=== PATIENT | female | born 1935 | race Caucasian/White ===

== ENCOUNTER → 2016-10-22 | Outpatient (REF) | payer MEDICARE | LOC: M SFHCCLAY 08:43 | PROVIDERS: ATTEND Nurse Practitioner Family | DX: E78.4 Other hyperlipidemia (principal); E55.9 Vitamin D deficiency, unspecified ==

== ENCOUNTER → 2017-03-06 | Outpatient (REF) | payer MEDICARE ==
[2017-03-06 12:50] LABS: MEAN CORPUSCULAR HEMOGLOBIN 31.8 pg (27.0-33.0); MEAN CORPUSCULAR HGB CONC 34.1 g/dl (32.0-36.5); MEAN CORPUSCULAR VOLUME 93.2 fl (80.0-96.0); RED CELL DISTRIBUTION WIDTH 12.2 % (11.5-14.5); WHITE BLOOD COUNT 6.2 K/mm3 (4.0-10.0)
[2017-03-06 14:36] LABS: ALBUMIN 3.8 GM/DL (3.2-5.2); ALBUMIN/GLOBULIN RATIO 1.23 (1.00-1.93); ALKALINE PHOSPHATASE 49 U/L (45-117); ALT/SGPT 26 U/L (12-78); ANION GAP 10 MEQ/L (8-16); AST/SGOT 21 U/L (15-37); BILIRUBIN,TOTAL 0.6 MG/DL (0.2-1.0); BLOOD UREA NITROGEN 16 MG/DL (7-18); CALCIUM LEVEL 9.2 MG/DL (8.8-10.2); CARBON DIOXIDE LEVEL 26 MEQ/L (21-32); CHLORIDE LEVEL 107 MEQ/L (98-107); CHOLESTEROL LEVEL 240 MG/DL (<200); CREATININE FOR GFR 0.85 MG/DL (0.55-1.02); GLOMERULAR FILTRATION RATE > 60.0 (>32); GLUCOSE, FASTING 118 MG/DL (83-110); MAGNESIUM LEVEL 2.2 MG/DL (1.8-2.4); SODIUM LEVEL 143 MEQ/L (136-145); TOTAL PROTEIN 6.9 GM/DL (6.4-8.2); TRIGLYCERIDES LEVEL 316 MG/DL (<150)
== END ==
LOC: M SFHCCLAY 08:30
PROVIDERS: ATTEND Nurse Practitioner Family
DX: K21.9 Gastro-esophageal reflux disease without esophagitis (principal); E78.4 Other hyperlipidemia; G47.62 Sleep related leg cramps; E55.9 Vitamin D deficiency, unspecified

== ENCOUNTER → 2017-06-05 | Outpatient (REF) | payer MEDICARE | LOC: M SFHCCLAY 08:47 | PROVIDERS: ATTEND Nurse Practitioner Family | DX: E78.4 Other hyperlipidemia (principal) ==

== ENCOUNTER → 2018-04-02 | Outpatient (REF) | payer MEDICARE ==
[2018-04-02 11:32] LABS: HEMATOCRIT 42.4 % (36.0-47.0); HEMOGLOBIN 14.2 g/dl (12.0-15.5); MEAN CORPUSCULAR HEMOGLOBIN 31.5 pg (27.0-33.0); MEAN CORPUSCULAR HGB CONC 33.5 g/dl (32.0-36.5); PLATELET COUNT, AUTOMATED 248 10^3/uL (150-450); RED BLOOD COUNT 4.51 10^6/uL (4.00-5.40); RED CELL DISTRIBUTION WIDTH 12.3 % (11.5-14.5); WHITE BLOOD COUNT 8.4 10^3/uL (4.0-10.0)
[2018-04-02 12:06] LABS: TOTAL 25(OH) VITAMIN D 44.9 NG/ML (30.0-100.0)
[2018-04-02 12:32] LABS: ALBUMIN 4.3 GM/DL (3.2-5.2); ALBUMIN/GLOBULIN RATIO 1.43 (1.00-1.93); ALKALINE PHOSPHATASE 42 U/L (45-117); ALT/SGPT 19 U/L (12-78); ANION GAP 10 MEQ/L (8-16); AST/SGOT 13 U/L (7-37); BILIRUBIN,TOTAL 0.7 MG/DL (0.2-1.0); BLOOD UREA NITROGEN 26 MG/DL (7-18); CALCIUM LEVEL 9.5 MG/DL (8.8-10.2); CARBON DIOXIDE LEVEL 27 MEQ/L (21-32); CHLORIDE LEVEL 108 MEQ/L (98-107); CHOLESTEROL LEVEL 226 MG/DL (<200); CHOLESTEROL RISK RATIO 4.431 (<5); CREATININE FOR GFR 1.05 MG/DL (0.55-1.30); GLOMERULAR FILTRATION RATE 53.4 (>32); GLUCOSE, FASTING 97 MG/DL (70-100); HDL CHOLESTEROL 51 MG/DL (>40); LDL CHOLESTEROL 150 MG/DL (<100); NON-HDL-C 175 MG/DL; POTASSIUM SERUM 4.1 MEQ/L (3.5-5.1); SODIUM LEVEL 145 MEQ/L (136-145); TOTAL PROTEIN 7.3 GM/DL (6.4-8.2); TRIGLYCERIDES LEVEL 125 MG/DL (<150)
== END ==
LOC: M SFHCCLAY 08:50
DX: K21.9 Gastro-esophageal reflux disease without esophagitis (principal); E78.49 Other hyperlipidemia; E55.9 Vitamin D deficiency, unspecified
CPT/HCPCS: 80053

== ENCOUNTER → 2018-10-02 | Outpatient (REF) | payer MEDICARE ==
[2018-10-02 19:12] LABS: BLOOD UREA NITROGEN 28 MG/DL (7-18); CHOLESTEROL LEVEL 270 MG/DL (<200); CHOLESTEROL RISK RATIO 5.744 (<5); CREATININE FOR GFR 0.94 MG/DL (0.55-1.30); GLOMERULAR FILTRATION RATE > 60.0 (>32); HDL CHOLESTEROL 47 MG/DL (>40); LDL CHOLESTEROL 183 MG/DL (<100); NON-HDL-C 223 MG/DL; TRIGLYCERIDES LEVEL 199 MG/DL (<150)
== END ==
LOC: M SFHCCLAY 09:46
PROVIDERS: ATTEND Nurse Practitioner Family
DX: R79.9 Abnormal finding of blood chemistry, unspecified (principal); E78.49 Other hyperlipidemia; E55.9 Vitamin D deficiency, unspecified

== ENCOUNTER → 2019-04-09 | Outpatient (REF) | payer MEDICARE ==
[2019-04-09 11:58] LABS: HEMOGLOBIN 14.7 g/dl (12.0-15.5); MEAN CORPUSCULAR HEMOGLOBIN 31.9 pg (27.0-33.0); MEAN CORPUSCULAR HGB CONC 33.4 g/dl (32.0-36.5); MEAN CORPUSCULAR VOLUME 95.4 fl (80.0-96.0); PLATELET COUNT, AUTOMATED 302 10^3/uL (150-450); RED BLOOD COUNT 4.61 10^6/uL (4.00-5.40); WHITE BLOOD COUNT 8.7 10^3/uL (4.0-10.0)
[2019-04-09 12:34] LABS: ALBUMIN 4.2 GM/DL (3.2-5.2); ALT/SGPT 22 U/L (12-78); BILIRUBIN,TOTAL 0.8 MG/DL (0.2-1.0); BLOOD UREA NITROGEN 20 MG/DL (7-18); CALCIUM LEVEL 9.9 MG/DL (8.8-10.2); CARBON DIOXIDE LEVEL 27 MEQ/L (21-32); CHLORIDE LEVEL 106 MEQ/L (98-107); CHOLESTEROL LEVEL 276 MG/DL (<200); CHOLESTEROL RISK RATIO 5.872 (<5); CREATININE FOR GFR 0.93 MG/DL (0.55-1.30); GLOMERULAR FILTRATION RATE > 60.0 (>32); GLUCOSE, FASTING 106 MG/DL (70-100); HDL CHOLESTEROL 47 MG/DL (>40); LDL CHOLESTEROL 173 MG/DL (<100); NON-HDL-C 229 MG/DL; POTASSIUM SERUM 4.5 MEQ/L (3.5-5.1); SODIUM LEVEL 140 MEQ/L (136-145); TOTAL PROTEIN 7.5 GM/DL (6.4-8.2); TRIGLYCERIDES LEVEL 280 MG/DL (<150)
== END ==
LOC: M SFHCCLAY 09:21
PROVIDERS: ATTEND Nurse Practitioner Family
DX: E78.1 Pure hyperglyceridemia (principal)

== ENCOUNTER → 2019-07-08 | Outpatient (REF) | payer MEDICARE ==
[2019-07-08 17:52] LABS: ALBUMIN 4.5 GM/DL (3.2-5.2); BILIRUBIN,DIRECT 0.2 MG/DL (0.0-0.2); BILIRUBIN,TOTAL 0.9 MG/DL (0.2-1.0); CHOLESTEROL RISK RATIO 3.843 (<5); TOTAL PROTEIN 7.7 GM/DL (6.4-8.2)
== END ==
LOC: M SFHCCLAY 09:58
PROVIDERS: ATTEND Nurse Practitioner Family
DX: E78.5 Hyperlipidemia, unspecified (principal)

== ENCOUNTER → 2019-10-07 | Outpatient (REF) | payer MEDICARE ==
[2019-10-07 12:02] LABS: CHOLESTEROL RISK RATIO 4.18 (<5)
== END ==
LOC: M SFHCCLAY 08:37
PROVIDERS: ATTEND Nurse Practitioner Family
DX: E78.5 Hyperlipidemia, unspecified (principal)

== ENCOUNTER → 2020-04-13 | Outpatient (REF) | payer MEDICARE ==
[2020-04-13 12:42] LABS: HEMATOCRIT 42.4 % (36.0-47.0); HEMOGLOBIN 13.9 g/dl (12.0-15.5); MEAN CORPUSCULAR HEMOGLOBIN 31.2 pg (27.0-33.0); MEAN CORPUSCULAR HGB CONC 32.8 g/dl (32.0-36.5); MEAN CORPUSCULAR VOLUME 95.1 fl (80.0-96.0); PLATELET COUNT, AUTOMATED 227 10^3/uL (150-450); RED BLOOD COUNT 4.46 10^6/uL (4.00-5.40); WHITE BLOOD COUNT 8.1 10^3/uL (4.0-10.0)
[2020-04-13 13:07] LABS: ALBUMIN 4.2 GM/DL (3.2-5.2); BILIRUBIN,TOTAL 0.9 MG/DL (0.2-1.0); CALCIUM LEVEL 9.5 MG/DL (8.8-10.2); CHOLESTEROL RISK RATIO 3.145 (<5); CREATININE FOR GFR 0.98 MG/DL (0.55-1.30); GLOMERULAR FILTRATION RATE 57.6 (>32); POTASSIUM SERUM 4.2 MEQ/L (3.5-5.1); TOTAL PROTEIN 7.1 GM/DL (6.4-8.2)
[2020-04-13 17:20] LABS: TOTAL 25(OH) VITAMIN D 53.3 NG/ML (30.0-100.0)
== END ==
LOC: M SFHCCLAY 08:16
PROVIDERS: ATTEND Nurse Practitioner Family
DX: K21.9 Gastro-esophageal reflux disease without esophagitis (principal); E78.5 Hyperlipidemia, unspecified; E55.9 Vitamin D deficiency, unspecified

== ENCOUNTER → 2021-06-19 | Outpatient (REF) | payer MEDICARE ==
[2021-06-19 11:30] LABS: HEMATOCRIT 41.7 % (36.0-47.0); HEMOGLOBIN 13.9 g/dl (12.0-15.5); MEAN CORPUSCULAR HEMOGLOBIN 31.4 pg (27.0-33.0); MEAN CORPUSCULAR HGB CONC 33.3 g/dl (32.0-36.5); MEAN CORPUSCULAR VOLUME 94.3 fl (80.0-96.0); PLATELET COUNT, AUTOMATED 292 10^3/uL (150-450); RED BLOOD COUNT 4.42 10^6/uL (4.00-5.40)
[2021-06-19 12:05] LABS: ALT/SGPT 22 U/L (12-78); BILIRUBIN,TOTAL 0.8 MG/DL (0.2-1.0); BLOOD UREA NITROGEN 19 MG/DL (7-18); CARBON DIOXIDE LEVEL 30 MEQ/L (21-32); CHLORIDE LEVEL 110 MEQ/L (98-107); CHOLESTEROL LEVEL 187 MG/DL (<200); CHOLESTEROL RISK RATIO 3.666 (<5); CREATININE FOR GFR 0.93 MG/DL (0.55-1.30); GLOMERULAR FILTRATION RATE > 60.0 (>32); GLUCOSE, FASTING 111 MG/DL (70-100); HDL CHOLESTEROL 51 MG/DL (>40); LDL CHOLESTEROL 113 MG/DL (<100); NON-HDL-C 136 MG/DL; POTASSIUM SERUM 4.5 MEQ/L (3.5-5.1); SODIUM LEVEL 143 MEQ/L (136-145); TOTAL 25(OH) VITAMIN D 43.1 NG/ML (30.0-100.0); TOTAL PROTEIN 7.1 GM/DL (6.4-8.2); TRIGLYCERIDES LEVEL 115 MG/DL (<150)
== END ==
LOC: M SFHCCLAY 07:26
PROVIDERS: ATTEND Nurse Practitioner Family
DX: K21.9 Gastro-esophageal reflux disease without esophagitis (principal); E78.5 Hyperlipidemia, unspecified; E55.9 Vitamin D deficiency, unspecified

== ENCOUNTER 2021-11-21 00:30 | Emergency (ER) | payer MEDICARE ==
[~2021-11-21] VITALS: Ht 160 cm; Wt 49.7 kg
[2021-11-21] MEDS ORDERED: NS 500 ML IV ONE (00:50)
[2021-11-21 01:31] LABS: BASO # 0.1 10^3/uL (0.0-0.2); BASO % 0.5 % (0.0-1.0); EOS # 0.1 10^3/uL (0.0-0.5); EOS % 0.7 % (0.0-3.0); HEMATOCRIT 38.2 % (36.0-47.0); LYMPH # 2.6 10^3/uL (1.5-5.0); MEAN CORPUSCULAR HEMOGLOBIN 31.8 pg (27.0-33.0); MEAN CORPUSCULAR VOLUME 93.4 fl (80.0-96.0); MONO % 11.9 % (2.0-8.0); NEUTROPHILS # 9.2 10^3/uL (1.5-8.5); NEUTROPHILS % 67.5 % (36.0-66.0); PLATELET COUNT, AUTOMATED 334 10^3/uL (150-450); RED BLOOD COUNT 4.09 10^6/uL (4.00-5.40); WHITE BLOOD COUNT 13.6 10^3/uL (4.0-10.0)
[2021-11-21 01:55] LABS: CK-MB VALUE MASS 2.8 NG/ML (<3.6); MB/CK RELATIVE INDEX 2.28 (< OR =4)
[2021-11-21 01:57] LABS: RSV AMPLIFICATION NEGATIVE (NEGATIVE)
[2021-11-21 02:09] LABS: BLOOD UREA NITROGEN 13 MG/DL (7-18); CALCIUM LEVEL 9.4 MG/DL (8.8-10.2); CARBON DIOXIDE LEVEL 25 MEQ/L (21-32); CHLORIDE LEVEL 109 MEQ/L (98-107); CREATININE FOR GFR 0.86 MG/DL (0.55-1.30); FREE T4 1.29 NG/DL (0.76-1.46); GLOMERULAR FILTRATION RATE > 60.0 (>32); GLUCOSE, FASTING 138 MG/DL (70-100); MAGNESIUM LEVEL 1.8 MG/DL (1.8-2.4); NT-PRO BNP 2703 PG/ML (<450); POTASSIUM SERUM 3.7 MEQ/L (3.5-5.1); SODIUM LEVEL 141 MEQ/L (136-145)
[2021-11-21 02:18] LABS: MONO # 1.6 10^3/uL (0.0-0.8)
[2021-11-21 02:51] LABS: CK-MB VALUE MASS 2.5 NG/ML (<3.6); MB/CK RELATIVE INDEX 2.78 (< OR =4)
[2021-11-21] MEDS ORDERED: diltiaZEM **CD** 180 MG CAP PO ONE (03:15)
[2021-11-21] MEDS ORDERED: BENZONATATE 100MG CAPSULE PO ONE (03:20)
[2021-11-21 04:29] VITALS: BP 105/68
[2021-11-21] MEDS ORDERED: DILT180C78 PO (06:40)
[2021-11-21] MEDS ORDERED: BENZ200C70 PO (06:48)
[2021-11-21 07:30] VITALS: BP 104/52
== END 2021-11-21 07:45 | disposition home or self-care (01) ==
LOC: M ED 00:30
DX: I48.91 Unspecified atrial fibrillation (principal); E78.5 Hyperlipidemia, unspecified; I51.7 Cardiomegaly

== ENCOUNTER 2021-11-25 09:14 | Emergency (ER) | payer MEDICARE ==
[~2021-11-25] VITALS: Ht 160 cm; Wt 50.0 kg
[~2021-11-25 09:14] MED LIST: BENZ200C70 PO; DILT180C78 PO
[2021-11-25] MEDS ORDERED: APIXABAN 2.5 MG TAB (ELIQUIS) PO ONE (10:00)
[2021-11-25 10:18] LABS: BASO # 0.1 10^3/uL (0.0-0.2); BASO % 0.7 % (0.0-1.0); EOS # 0.1 10^3/uL (0.0-0.5); EOS % 0.7 % (0.0-3.0); HEMATOCRIT 43.2 % (36.0-47.0); HEMOGLOBIN 14.4 g/dl (12.0-15.5); LYMPH # 2.2 10^3/uL (1.5-5.0); LYMPH % 21.5 % (24.0-44.0); MEAN CORPUSCULAR HEMOGLOBIN 31.4 pg (27.0-33.0); MEAN CORPUSCULAR HGB CONC 33.3 g/dl (32.0-36.5); MEAN CORPUSCULAR VOLUME 94.3 fl (80.0-96.0); MONO % 9.9 % (2.0-8.0); NEUTROPHILS # 6.7 10^3/uL (1.5-8.5); NEUTROPHILS % 66.5 % (36.0-66.0); PLATELET COUNT, AUTOMATED 467 10^3/uL (150-450); RED BLOOD COUNT 4.58 10^6/uL (4.00-5.40)
[2021-11-25 10:59] LABS: BLOOD UREA NITROGEN 17 MG/DL (7-18); CALCIUM LEVEL 10.5 MG/DL (8.8-10.2); CARBON DIOXIDE LEVEL 28 MEQ/L (21-32); CHLORIDE LEVEL 107 MEQ/L (98-107); CREATININE FOR GFR 0.94 MG/DL (0.55-1.30); FREE T4 1.12 NG/DL (0.76-1.46); GLOMERULAR FILTRATION RATE > 60.0 (>32); GLUCOSE, FASTING 127 MG/DL (70-100); SODIUM LEVEL 145 MEQ/L (136-145)
[2021-11-25 11:07] LABS: CK-MB VALUE MASS 2.9 NG/ML (<3.6); MB/CK RELATIVE INDEX 3.97 (< OR =4)
[2021-11-25] MEDS ORDERED: HEPARIN DRIP 25,000 UNITS in IV 1 EA IV SCH (11:25)
[2021-11-25] MEDS ORDERED: ASPIRIN 81 MG CHEW TABLET PO ONE (11:25)
[2021-11-25] MEDS ORDERED: HEPARIN SOD (PORCINE) 5000UNITS/ML 1ML VIAL/SYRINGE IV ONE (11:25)
[2021-11-25 11:51] LABS: CK-MB VALUE MASS 2.9 NG/ML (<3.6); MB/CK RELATIVE INDEX 4.46 (< OR =4)
[2021-11-25 11:53] LABS: RSV AMPLIFICATION NEGATIVE (NEGATIVE)
[2021-11-25 12:01] LABS: INR 1.14
[2021-11-25 12:02] LABS: PARTIAL THROMBOPLASTIN TIME 34.7 SECONDS (25.9-37.0)
[2021-11-25 13:15] VITALS: BP 112/66
== END 2021-11-25 13:26 | disposition short-term general hospital (02) ==
LOC: M ED 09:14
DX: I21.4 Non-ST elevation (NSTEMI) myocardial infarction (principal); I48.91 Unspecified atrial fibrillation
CPT/HCPCS: 71046; 80048; 82550; 82553; 84439; 84443; 84484; 85025; 85610; 85730; 87631; 93005; 93041; 94760; 96374; 99285; J1644

== ENCOUNTER 2021-12-10 13:42 | Emergency (ER) | payer MEDICARE ==
[~2021-12-10] VITALS: Ht 162.6 cm; Wt 47.3 kg
[2021-12-10 14:37] LABS: BASO % 0.5 % (0.0-1.0); EOS # 0.1 10^3/uL (0.0-0.5); HEMATOCRIT 41.4 % (36.0-47.0); HEMOGLOBIN 14.3 g/dl (12.0-15.5); LYMPH # 2.4 10^3/uL (1.5-5.0); LYMPH % 30.3 % (24.0-44.0); MEAN CORPUSCULAR HEMOGLOBIN 31.6 pg (27.0-33.0); MEAN CORPUSCULAR HGB CONC 34.5 g/dl (32.0-36.5); MEAN CORPUSCULAR VOLUME 91.6 fl (80.0-96.0); MONO # 0.7 10^3/uL (0.0-0.8); MONO % 9.3 % (2.0-8.0); NEUTROPHILS # 4.7 10^3/uL (1.5-8.5); NEUTROPHILS % 58.6 % (36.0-66.0); PLATELET COUNT, AUTOMATED 355 10^3/uL (150-450); RED BLOOD COUNT 4.52 10^6/uL (4.00-5.40)
[2021-12-10 14:51] LABS: INR 1.08; PROTHROMBIN TIME 14.4 SECONDS (12.7-14.5)
[2021-12-10 14:52] LABS: PARTIAL THROMBOPLASTIN TIME 31.6 SECONDS (25.9-37.0)
[2021-12-10 14:57] LABS: BLOOD UREA NITROGEN 17 MG/DL (7-18); CALCIUM LEVEL 9.6 MG/DL (8.8-10.2); CARBON DIOXIDE LEVEL 26 MEQ/L (21-32); CHLORIDE LEVEL 109 MEQ/L (98-107); GLOMERULAR FILTRATION RATE > 60.0 (>32); GLUCOSE, FASTING 115 MG/DL (70-100); POTASSIUM SERUM 3.6 MEQ/L (3.5-5.1); SODIUM LEVEL 142 MEQ/L (136-145)
[2021-12-10 15:03] LABS: CK-MB VALUE MASS 3.1 NG/ML (<3.6); MB/CK RELATIVE INDEX 7.75 (< OR =4)
[2021-12-10 15:16] VITALS: BP 129/69
== END 2021-12-10 16:40 | disposition home or self-care (01) ==
LOC: EDBD 13:42 → M ED 13:42
DX: I48.0 Paroxysmal atrial fibrillation (principal); E78.5 Hyperlipidemia, unspecified; K21.9 Gastro-esophageal reflux disease without esophagitis; Z79.899 Other long term (current) drug therapy

== ENCOUNTER → 2021-12-14 | Outpatient (REF) | payer MEDICARE ==
[2021-12-14 16:33] LABS: HEMATOCRIT 40.4 % (36.0-47.0); HEMOGLOBIN 13.5 g/dl (12.0-15.5); MEAN CORPUSCULAR HEMOGLOBIN 31.1 pg (27.0-33.0); MEAN CORPUSCULAR HGB CONC 33.4 g/dl (32.0-36.5); MEAN CORPUSCULAR VOLUME 93.1 fl (80.0-96.0); PLATELET COUNT, AUTOMATED 265 10^3/uL (150-450); RED BLOOD COUNT 4.34 10^6/uL (4.00-5.40); WHITE BLOOD COUNT 10.4 10^3/uL (4.0-10.0)
== END ==
LOC: M SFHCCLAY 11:34
PROVIDERS: ATTEND Nurse Practitioner Family
DX: I48.91 Unspecified atrial fibrillation (principal)

== ENCOUNTER → 2021-12-17 | Outpatient (REF) | payer MEDICARE | LOC: M SFHCCLAY 15:37 | PROVIDERS: ATTEND Nurse Practitioner Family | DX: I48.91 Unspecified atrial fibrillation (principal) ==

== ENCOUNTER 2021-12-29 23:57 | Emergency (ER) | payer MEDICARE ==
[~2021-12-29] VITALS: Ht 160 cm; Wt 53.5 kg
[2021-12-30] MEDS ORDERED: NS 500 ML IV ONE (00:15)
[2021-12-30 00:48] LABS: BASO # 0.1 10^3/uL (0.0-0.2); BASO % 0.4 % (0.0-1.0); EOS # 0.1 10^3/uL (0.0-0.5); EOS % 0.3 % (0.0-3.0); HEMATOCRIT 42.2 % (36.0-47.0); HEMOGLOBIN 14.3 g/dl (12.0-15.5); LYMPH # 1.3 10^3/uL (1.5-5.0); LYMPH % 6.7 % (24.0-44.0); MEAN CORPUSCULAR HEMOGLOBIN 31.4 pg (27.0-33.0); MEAN CORPUSCULAR HGB CONC 33.9 g/dl (32.0-36.5); MEAN CORPUSCULAR VOLUME 92.5 fl (80.0-96.0); MONO % 9.2 % (2.0-8.0); NEUTROPHILS # 16.6 10^3/uL (1.5-8.5); NEUTROPHILS % 82.9 % (36.0-66.0); PLATELET COUNT, AUTOMATED 362 10^3/uL (150-450); RED BLOOD COUNT 4.56 10^6/uL (4.00-5.40)
[2021-12-30 00:54] LABS: MONO # 1.8 10^3/uL (0.0-0.8)
[2021-12-30 01:42] LABS: CREATININE FOR GFR 1.16 MG/DL (0.55-1.30); GLOMERULAR FILTRATION RATE 47.2 (>32); POTASSIUM SERUM 4.2 MEQ/L (3.5-5.1)
[2021-12-30 01:45] LABS: CK-MB VALUE MASS 2.7 NG/ML (<3.6); MB/CK RELATIVE INDEX 1.57 (< OR =4)
[2021-12-30] MEDS ORDERED: diltiaZEM **CD** 180 MG CAP PO ONE (02:00)
[2021-12-30 02:13] LABS: CK-MB VALUE MASS 2.3 NG/ML (<3.6); MB/CK RELATIVE INDEX 2.99 (< OR =4)
[2021-12-30] MEDS ORDERED: ONDANSETRON 4MG 2ML VIAL IV ONE (04:30)
[2021-12-30 07:31] VITALS: BP 113/51
== END 2021-12-30 08:15 | disposition home or self-care (01) ==
LOC: M ED 23:57
DX: I48.91 Unspecified atrial fibrillation (principal); R91.8 Other nonspecific abnormal finding of lung field; I48.92 Unspecified atrial flutter; I44.30 Unspecified atrioventricular block; K21.9 Gastro-esophageal reflux disease without esophagitis; Z98.61 Coronary angioplasty status; Z79.899 Other long term (current) drug therapy
CPT/HCPCS: 71045; 80048; 82550; 82553; 83880; 84484; 85025; 93005; 93041; 94760; 96361; 96374; 96375; 99285; J2405

== ENCOUNTER → 2022-02-20 | Outpatient (REF) | payer MEDICARE ==
[2022-02-20 16:59] LABS: HEMOGLOBIN 13.9 g/dl (12.0-15.5); MEAN CORPUSCULAR HEMOGLOBIN 31.4 pg (27.0-33.0); MEAN CORPUSCULAR HGB CONC 33.9 g/dl (32.0-36.5); MEAN CORPUSCULAR VOLUME 92.8 fl (80.0-96.0); PLATELET COUNT, AUTOMATED 308 10^3/uL (150-450); RED BLOOD COUNT 4.42 10^6/uL (4.00-5.40); WHITE BLOOD COUNT 9.3 10^3/uL (4.0-10.0)
[2022-02-20 17:47] LABS: ALBUMIN 4.3 GM/DL (3.2-5.2); BILIRUBIN,TOTAL 0.5 MG/DL (0.2-1.0); CALCIUM LEVEL 9.9 MG/DL (8.8-10.2); CHOLESTEROL RISK RATIO 2.952 (<5); CREATININE FOR GFR 0.98 MG/DL (0.55-1.30); FREE T4 0.97 NG/DL (0.76-1.46); GLOMERULAR FILTRATION RATE 57.3 (>32); POTASSIUM SERUM 4.2 MEQ/L (3.5-5.1); THYROID STIMULATING HORMONE 2.74 uIU/ML (0.358-3.740); TOTAL PROTEIN 7.6 GM/DL (6.4-8.2)
== END ==
LOC: M SFHCCLAY 13:54
PROVIDERS: ATTEND Nurse Practitioner Family
DX: E78.5 Hyperlipidemia, unspecified (principal); I48.91 Unspecified atrial fibrillation

== ENCOUNTER 2022-05-13 04:06 | Emergency (ER) | payer MEDICARE ==
[~2022-05-13] VITALS: Ht 160 cm; Wt 45.5 kg
[2022-05-13] MEDS ORDERED: PANT40TA29 PO (04:23)
[2022-05-13] MEDS ORDERED: SIMV10TA21 PO (04:23)
[2022-05-13] MEDS ORDERED: FLEC1TAB PO (04:23)
[2022-05-13] MEDS ORDERED: ELIQ2.5T PO (04:23)
[2022-05-13] MEDS ORDERED: FENO145T7 PO (04:23)
[2022-05-13] MEDS ORDERED: CALC500C16 PO (04:24)
[2022-05-13] MEDS ORDERED: OMEG1CAP17 PO (04:24)
[2022-05-13 05:37] LABS: BASO # 0.1 10^3/uL (0.0-0.2); BASO % 0.7 % (0.0-1.0); EOS # 0.1 10^3/uL (0.0-0.5); EOS % 1.3 % (0.0-3.0); HEMATOCRIT 37.3 % (36.0-47.0); HEMOGLOBIN 12.7 g/dl (12.0-15.5); LYMPH # 2.3 10^3/uL (1.5-5.0); LYMPH % 22.5 % (24.0-44.0); MEAN CORPUSCULAR HEMOGLOBIN 31.4 pg (27.0-33.0); MEAN CORPUSCULAR VOLUME 92.1 fl (80.0-96.0); MONO # 0.9 10^3/uL (0.0-0.8); MONO % 8.7 % (2.0-8.0); NEUTROPHILS # 6.7 10^3/uL (1.5-8.5); NEUTROPHILS % 66.4 % (36.0-66.0); PLATELET COUNT, AUTOMATED 410 10^3/uL (150-450); RED BLOOD COUNT 4.05 10^6/uL (4.00-5.40); WHITE BLOOD COUNT 10.1 10^3/uL (4.0-10.0)
[2022-05-13 05:52] LABS: INR 1.07; PROTHROMBIN TIME 14.1 SECONDS (12.5-14.5)
[2022-05-13 06:11] LABS: ALBUMIN 3.7 GM/DL (3.2-5.2); ALT/SGPT 19 U/L (12-78); BILIRUBIN,DIRECT 0.2 MG/DL (0.0-0.2); BILIRUBIN,TOTAL 0.4 MG/DL (0.2-1.0); BLOOD UREA NITROGEN 19 MG/DL (7-18); CALCIUM LEVEL 9.3 MG/DL (8.8-10.2); CARBON DIOXIDE LEVEL 24 MEQ/L (21-32); CHLORIDE LEVEL 112 MEQ/L (98-107); CREATININE FOR GFR 0.94 MG/DL (0.55-1.30); GLOMERULAR FILTRATION RATE > 60.0 (>32); GLUCOSE, FASTING 131 MG/DL (70-100); NT-PRO BNP 1562 PG/ML (<450); POTASSIUM SERUM 3.5 MEQ/L (3.5-5.1); SODIUM LEVEL 141 MEQ/L (136-145); TOTAL PROTEIN 7.6 GM/DL (6.4-8.2)
[2022-05-13 06:17] LABS: CK-MB VALUE MASS 2.1 NG/ML (<3.6); MB/CK RELATIVE INDEX 3.96 (< OR =4)
[2022-05-13] MEDS ORDERED: ASPIRIN 325 MG TAB PO ONE (06:20)
[2022-05-13] MEDS ORDERED: ISOVUE-370 76% 100ML VIAL As Ordered ONE (06:59)
[2022-05-13 07:38] LABS: CK-MB VALUE MASS 2.3 NG/ML (<3.6); MB/CK RELATIVE INDEX 4.34 (< OR =4)
[2022-05-13 08:50] LABS: CK-MB VALUE MASS 2.2 NG/ML (<3.6); MB/CK RELATIVE INDEX 4.58 (< OR =4)
[2022-05-13] MEDS ORDERED: PANTOPRAZOLE 40MG TAB (PROTONIX) PO ONE (09:25)
[2022-05-13] MEDS ORDERED: FLECAINIDE 50MG TABLET PO ONE (09:25)
[2022-05-13] MEDS ORDERED: APIXABAN 2.5 MG TAB (ELIQUIS) PO ONE (09:25)
[2022-05-13] MEDS ORDERED: FENO160T10 PO (09:54)
[2022-05-13] MEDS ORDERED: CALC600T86 PO (09:54)
[2022-05-13] MEDS ORDERED: ERGO500029 PO (09:54)
[2022-05-13] MEDS ORDERED: DILT300C21 PO (09:54)
[2022-05-13] MEDS ORDERED: HOME MED LIST COMPLETE! XX SCH (09:55)
[2022-05-13 11:00] VITALS: BP 146/63
== END 2022-05-13 11:15 | disposition home or self-care (01) ==
LOC: M ED 04:06
DX: I48.0 Paroxysmal atrial fibrillation (principal); Z98.61 Coronary angioplasty status; I10 Essential (primary) hypertension; K21.9 Gastro-esophageal reflux disease without esophagitis; E55.9 Vitamin D deficiency, unspecified; E78.5 Hyperlipidemia, unspecified; Z79.01 Long term (current) use of anticoagulants; Z79.899 Other long term (current) drug therapy; I51.7 Cardiomegaly; J98.4 Other disorders of lung
CPT/HCPCS: 71046; 71275; 80048; 80076; 82550; 82553; 83880; 84484; 85025; 85610; 85730; 87486; 87581; 87633; 87798; 93005; 93041; 94760; 99285; Q9967

== ENCOUNTER 2022-06-01 17:55 | Inpatient (IN) | payer MEDICARE ==
[~2022-06-01] VITALS: Ht 149.9 cm; Wt 49.0 kg
[~2022-06-01 17:55] MED LIST changes: +CALC500C16 PO; +CALC600T86 PO; +DILT300C21 PO; +ELIQ2.5T PO; +ERGO500029 PO; +FENO145T7 PO; +FENO160T10 PO; +FLEC1TAB PO; +OMEG1CAP17 PO; +PANT40TA29 PO; +SIMV10TA21 PO
[2022-06-01 19:06] LABS: BASO # 0.1 10^3/uL (0.0-0.2); BASO % 0.4 % (0.0-1.0); EOS # 0.2 10^3/uL (0.0-0.5); EOS % 0.8 % (0.0-3.0); HEMATOCRIT 39.2 % (36.0-47.0); HEMOGLOBIN 12.5 g/dl (12.0-15.5); LYMPH # 2.5 10^3/uL (1.5-5.0); LYMPH % 12.3 % (24.0-44.0); MEAN CORPUSCULAR HEMOGLOBIN 30.9 pg (27.0-33.0); MEAN CORPUSCULAR HGB CONC 31.9 g/dl (32.0-36.5); MEAN CORPUSCULAR VOLUME 96.8 fl (80.0-96.0); MONO # 1.3 10^3/uL (0.0-0.8); MONO % 6.2 % (2.0-8.0); NEUTROPHILS # 16.4 10^3/uL (1.5-8.5); NEUTROPHILS % 79.5 % (36.0-66.0); PLATELET COUNT, AUTOMATED 348 10^3/uL (150-450); RED BLOOD COUNT 4.05 10^6/uL (4.00-5.40); WHITE BLOOD COUNT 20.6 10^3/uL (4.0-10.0)
[2022-06-01 19:14] LABS: RSV AMPLIFICATION NEGATIVE (NEGATIVE)
[2022-06-01] MEDS ORDERED: GLUCAGON INJ 1MG VIAL IV STA ×2 (19:20→19:40)
[2022-06-01] MEDS ORDERED: CALCIUM CHLORIDE 10% 1 GM in D5W 100 ML IV ONE (19:20)
[2022-06-01 19:21] LABS: INR 1.22; PARTIAL THROMBOPLASTIN TIME 27.5 SECONDS (24.8-34.2); PROTHROMBIN TIME 15.6 SECONDS (12.5-14.5)
[2022-06-01 19:31] LABS: BLOOD UREA NITROGEN 25 MG/DL (9-23); CALCIUM LEVEL 9.2 MG/DL (8.3-10.6); CARBON DIOXIDE LEVEL 25 MMOL/L (20-31); CHLORIDE LEVEL 106 MMOL/L (98-107); CK-MB VALUE MASS < 1.0 NG/ML (<3.6); CPK CREATINE PHOSPHOKINASE 44 U/L (34-145); CREATININE FOR GFR 1.37 MG/DL (0.55-1.30); GLOMERULAR FILTRATION RATE 38.9 (>32); GLUCOSE, FASTING 220 MG/DL (74-106); MB/CK RELATIVE INDEX 2.27 (< OR =4); POTASSIUM SERUM 4.8 MMOL/L (3.5-5.1); SODIUM LEVEL 141 MMOL/L (136-145)
[2022-06-01 19:34] LABS: FREE T4 1.16 NG/DL (0.89-1.76)
[2022-06-01] MEDS ORDERED: NS 500 ML IV ONE (19:40)
[2022-06-01] MEDS ORDERED: ONDANSETRON 4MG 2ML VIAL As Ordered ONE (19:58)
[2022-06-01] MEDS ORDERED: ONDANSETRON 4MG 2ML VIAL IV ONE (20:00)
[2022-06-01 21:07] LABS: HEMATOCRIT 35.3 % (36.0-47.0); HEMOGLOBIN 11.6 g/dl (12.0-15.5); MEAN CORPUSCULAR HEMOGLOBIN 31.4 pg (27.0-33.0); MEAN CORPUSCULAR HGB CONC 32.9 g/dl (32.0-36.5); MEAN CORPUSCULAR VOLUME 95.7 fl (80.0-96.0); PLATELET COUNT, AUTOMATED 318 10^3/uL (150-450); RED BLOOD COUNT 3.69 10^6/uL (4.00-5.40)
[2022-06-01 21:39] LABS: CK-MB VALUE MASS 1.3 NG/ML (<3.6)
[2022-06-01 21:47] LABS: MB/CK RELATIVE INDEX 2.95 (< OR =4)
[2022-06-01] MEDS ORDERED: METO1TAB87 PO (23:25)
[2022-06-01] MEDS ORDERED: HOME MED LIST COMPLETE! XX SCH (23:25)
[2022-06-02] VITALS (10 sets, daily range): BP systolic 94–125; BP diastolic 52–63
[2022-06-02] MEDS ORDERED: DEXTROSE 50% 50 ML SYRINGE IV PRN (00:55)
[2022-06-02] MEDS ORDERED: GLUCAGON INJ 1MG VIAL SC PRN (00:55)
[2022-06-02] MEDS ORDERED: GLUCOSE 4GM CHEW TABLET PO PRN (00:55)
[2022-06-02] MEDS ORDERED: FUROSEMIDE 100MG/10ML VIAL (J1940) IV ONE (01:00)
[2022-06-02 05:23] LABS: MAGNESIUM LEVEL 1.7 MG/DL (1.8-2.4)
[2022-06-02 05:29] LABS: CALCIUM LEVEL 10.4 MG/DL (8.3-10.6); CREATININE FOR GFR 1.52 MG/DL (0.55-1.30); GLOMERULAR FILTRATION RATE 34.5 (>32); POTASSIUM SERUM 3.8 MMOL/L (3.5-5.1)
[2022-06-02] MEDS ORDERED: MAG SULF 1GM/100ML (MAG RUN) 1 GM in IV 1 EA IV ONE (06:00)
[2022-06-02] MEDS: INSULIN LISPRO (NovoLOG) PER UNIT SC SCH ×4 (07:30→20:53)
[2022-06-02] MEDS ORDERED: FUROSEMIDE 40MG/4ML VIAL (J1940) IV SCH (09:00)
[2022-06-02] MEDS ORDERED: APIXABAN 2.5 MG TAB (ELIQUIS) PO SCH (09:00)
[2022-06-02] MEDS: FUROSEMIDE 20 MG TAB PO SCH ×2 (10:28→17:16)
[2022-06-02] MEDS: PANTOPRAZOLE 40MG TAB (PROTONIX) PO SCH (10:28)
[2022-06-02] MEDS: FLECAINIDE 50MG TABLET PO SCH ×2 (10:28→20:52)
[2022-06-02 14:01] LABS: BASO % 0.3 % (0.0-1.0); EOS # 0.1 10^3/uL (0.0-0.5); EOS % 0.6 % (0.0-3.0); HEMATOCRIT 33.5 % (36.0-47.0); HEMOGLOBIN 11.4 g/dl (12.0-15.5); LYMPH # 2.5 10^3/uL (1.5-5.0); LYMPH % 20.1 % (24.0-44.0); MEAN CORPUSCULAR HEMOGLOBIN 31.3 pg (27.0-33.0); MONO # 1.2 10^3/uL (0.0-0.8); MONO % 9.3 % (2.0-8.0); NEUTROPHILS # 8.7 10^3/uL (1.5-8.5); NEUTROPHILS % 69.3 % (36.0-66.0); PLATELET COUNT, AUTOMATED 311 10^3/uL (150-450); RED BLOOD COUNT 3.64 10^6/uL (4.00-5.40); WHITE BLOOD COUNT 12.6 10^3/uL (4.0-10.0)
[2022-06-02] MEDS: SIMVASTATIN 10 MG TAB PO SCH (20:52)
[2022-06-02] MEDS: FENOFIBRATE 145MG TABLET (TRICOR) PO SCH (20:53)
[2022-06-03 04:41] VITALS: BP 116/59
[2022-06-03 06:07] LABS: HEMATOCRIT 36.4 % (36.0-47.0); HEMOGLOBIN 12.1 g/dl (12.0-15.5); MEAN CORPUSCULAR HEMOGLOBIN 31.3 pg (27.0-33.0); MEAN CORPUSCULAR HGB CONC 33.2 g/dl (32.0-36.5); MEAN CORPUSCULAR VOLUME 94.3 fl (80.0-96.0); PLATELET COUNT, AUTOMATED 319 10^3/uL (150-450); RED BLOOD COUNT 3.86 10^6/uL (4.00-5.40); WHITE BLOOD COUNT 13.1 10^3/uL (4.0-10.0)
[2022-06-03 06:24] LABS: MAGNESIUM LEVEL 1.8 MG/DL (1.8-2.4)
[2022-06-03 06:27] LABS: CALCIUM LEVEL 9.8 MG/DL (8.3-10.6); CREATININE FOR GFR 1.26 MG/DL (0.55-1.30); GLOMERULAR FILTRATION RATE 42.9 (>32)
[2022-06-03] MEDS: INSULIN LISPRO (NovoLOG) PER UNIT SC SCH ×4 (07:30→21:00)
[2022-06-03 07:44] VITALS: BP 122/56
[2022-06-03] MEDS: FUROSEMIDE 20 MG TAB PO SCH ×2 (09:12→17:44)
[2022-06-03] MEDS: PANTOPRAZOLE 40MG TAB (PROTONIX) PO SCH (09:13)
[2022-06-03] MEDS: FLECAINIDE 50MG TABLET PO SCH ×2 (09:13→22:18)
[2022-06-03 12:00] VITALS: BP 101/49
[2022-06-03] MEDS ORDERED: LIDOCAINE 1% MDV 20ML VIAL As Ordered ONE (13:11)
[2022-06-03] MEDS ORDERED: SODIUM CHLORIDE 0.9% INJ 10 ML SYR IV PRN (15:30)
[2022-06-03 16:00] VITALS: BP 108/58
[2022-06-03] MEDS: SODIUM CHLORIDE 0.9% INJ 10 ML SYR IV SCH (17:46)
[2022-06-03 19:44] VITALS: BP 104/53
[2022-06-03] MEDS: FENOFIBRATE 145MG TABLET (TRICOR) PO SCH (22:17)
[2022-06-03] MEDS: SIMVASTATIN 10 MG TAB PO SCH (22:18)
[2022-06-03 23:59] VITALS: BP 107/53
[2022-06-04] VITALS (8 sets, daily range): BP systolic 111–148; BP diastolic 55–67
[2022-06-04 05:34] LABS: HEMATOCRIT 38.9 % (36.0-47.0); MEAN CORPUSCULAR HEMOGLOBIN 31.6 pg (27.0-33.0); MEAN CORPUSCULAR HGB CONC 33.4 g/dl (32.0-36.5); MEAN CORPUSCULAR VOLUME 94.6 fl (80.0-96.0); PLATELET COUNT, AUTOMATED 285 10^3/uL (150-450); RED BLOOD COUNT 4.11 10^6/uL (4.00-5.40); WHITE BLOOD COUNT 9.3 10^3/uL (4.0-10.0)
[2022-06-04 05:59] LABS: CALCIUM LEVEL 9.7 MG/DL (8.3-10.6); CREATININE FOR GFR 1.01 MG/DL (0.55-1.30); GLOMERULAR FILTRATION RATE 55.3 (>32); POTASSIUM SERUM 4.1 MMOL/L (3.5-5.1)
[2022-06-04] MEDS ORDERED: NS 1,000 ML IV SCH (06:00)
[2022-06-04] MEDS: SODIUM CHLORIDE 0.9% INJ 10 ML SYR IV SCH (06:06)
[2022-06-04] MEDS: INSULIN LISPRO (NovoLOG) PER UNIT SC SCH ×3 (07:30→20:40)
[2022-06-04] MEDS: FUROSEMIDE 20 MG TAB PO SCH (08:48)
[2022-06-04] MEDS: FLECAINIDE 50MG TABLET PO SCH ×2 (08:48→21:07)
[2022-06-04] MEDS: PANTOPRAZOLE 40MG TAB (PROTONIX) PO SCH (08:48)
[2022-06-04] MEDS ORDERED: ceFAZolin SOD 2 GM in IV 1 EA IV ONE (13:30)
[2022-06-04] MEDS ORDERED: LIDOCAINE 1% SDV 30ML VIAL As Ordered ONE (13:45)
[2022-06-04] MEDS ORDERED: MUPIROCIN 2% OINT 22 GM TUBE As Ordered ONE (13:45)
[2022-06-04] MEDS ORDERED: LIDOCAINE 2% 100MG/5ML SDV (FOR ANES.) As Ordered ONE (16:21)
[2022-06-04] MEDS ORDERED: fentaNYL 100 MCG/2 ML INJECTION As Ordered ONE (16:21)
[2022-06-04] MEDS ORDERED: propofoL 500 MG/50 ML VIAL As Ordered ONE (16:21)
[2022-06-04] MEDS ORDERED: MIDAZOLAM INJ 2MG/2ML VIAL (J2250 PER 1MG) As Ordered ONE (16:21)
[2022-06-04] MEDS ORDERED: ISOVUE-300 61% 50ML VIAL As Ordered ONE (17:42)
[2022-06-04] MEDS ORDERED: ACETAMINOPHEN TAB 650MG DOSE (2X325MG) PO PRN (20:45)
[2022-06-04] MEDS: SIMVASTATIN 10 MG TAB PO SCH (21:07)
[2022-06-05] VITALS (7 sets, daily range): BP systolic 98–124; BP diastolic 53–74
[2022-06-05] MEDS: SODIUM CHLORIDE 0.9% INJ 10 ML SYR IV SCH (05:18)
[2022-06-05 05:20] LABS: HEMATOCRIT 38.2 % (36.0-47.0); MEAN CORPUSCULAR HEMOGLOBIN 31.7 pg (27.0-33.0); MEAN CORPUSCULAR VOLUME 93.2 fl (80.0-96.0); PLATELET COUNT, AUTOMATED 282 10^3/uL (150-450); WHITE BLOOD COUNT 10.4 10^3/uL (4.0-10.0)
[2022-06-05 05:55] LABS: BLOOD UREA NITROGEN 22 MG/DL (9-23); CALCIUM LEVEL 9.3 MG/DL (8.3-10.6); CARBON DIOXIDE LEVEL 29 MMOL/L (20-31); CHLORIDE LEVEL 101 MMOL/L (98-107); CREATININE FOR GFR 0.82 MG/DL (0.55-1.30); GLOMERULAR FILTRATION RATE > 60.0 (>32); GLUCOSE, FASTING 118 MG/DL (74-106); POTASSIUM SERUM 3.8 MMOL/L (3.5-5.1); SODIUM LEVEL 140 MMOL/L (136-145)
[2022-06-05] MEDS: INSULIN LISPRO (NovoLOG) PER UNIT SC SCH ×2 (07:30→12:00)
[2022-06-05] MEDS ORDERED: ASCORBIC ACID 250 MG TAB PO SCH (09:00)
[2022-06-05] MEDS ORDERED: METOPROLOL SUCC (TopROL XL) 50MG **XL** TAB PO SCH (09:00)
[2022-06-05] MEDS ORDERED: ASCO250T20 PO (09:47)
[2022-06-05] MEDS ORDERED: METO1TAB7 PO (09:47)
[2022-06-05] MEDS: FLECAINIDE 50MG TABLET PO SCH (10:08)
[2022-06-05] MEDS: PANTOPRAZOLE 40MG TAB (PROTONIX) PO SCH (10:08)
[2022-06-05] MEDS ORDERED: APIXABAN 2.5 MG TAB (ELIQUIS) PO SCH (21:00)
== END 2022-06-05 13:52 | disposition home health service (06) | DRG 242 ==
LOC: EDBD 17:55 → M ED 17:55 → M ED INP 06-02 00:53 → ENRESERV 06-02 01:26 → M ICU 06-02 01:41 → M PCU 06-02 15:58
PROVIDERS: ADMIT Internal Medicine; ATTEND Student in an Organized Health Care Education/Training Program
PROC: B246ZZZ Ultrasonography of Right and Left Heart (ICD-10-PCS; 2022-06-02)
PROC: 02HV33Z Insertion of Infusion Device into Superior Vena Cava, Percutaneous Approach (ICD-10-PCS; 2022-06-03)
PROC: 02H63MZ Insertion of Cardiac Lead into Right Atrium, Percutaneous Approach (ICD-10-PCS; 2022-06-04)
PROC: 02HK3MZ Insertion of Cardiac Lead into Right Ventricle, Percutaneous Approach (ICD-10-PCS; 2022-06-04)
PROC: 0JH606Z Insertion of Pacemaker, Dual Chamber into Chest Subcutaneous Tissue and Fascia, Open Approach (ICD-10-PCS; principal; 2022-06-04 18:02)
DX: I49.5 Sick sinus syndrome (principal); I21.A1 Myocardial infarction type 2; J96.01 Acute respiratory failure with hypoxia; J81.0 Acute pulmonary edema; I48.91 Unspecified atrial fibrillation; E83.42 Hypomagnesemia; E78.5 Hyperlipidemia, unspecified; D72.829 Elevated white blood cell count, unspecified; E78.1 Pure hyperglyceridemia; E02 Subclinical iodine-deficiency hypothyroidism; Z90.49 Acquired absence of other specified parts of digestive tract; Z79.01 Long term (current) use of anticoagulants; Z79.899 Other long term (current) drug therapy

== ENCOUNTER → 2022-06-17 | Outpatient (REF) | payer MEDICARE ==
[~2022-06-17] MED LIST changes: +ASCO250T20 PO; +METO1TAB7 PO; +METO1TAB87 PO
[2022-06-17 11:40] LABS: HEMATOCRIT 39.4 % (36.0-47.0); HEMOGLOBIN 13.1 g/dl (12.0-15.5); MEAN CORPUSCULAR HEMOGLOBIN 31.5 pg (27.0-33.0); MEAN CORPUSCULAR HGB CONC 33.2 g/dl (32.0-36.5); MEAN CORPUSCULAR VOLUME 94.7 fl (80.0-96.0); PLATELET COUNT, AUTOMATED 260 10^3/uL (150-450); RED BLOOD COUNT 4.16 10^6/uL (4.00-5.40); WHITE BLOOD COUNT 10.2 10^3/uL (4.0-10.0)
[2022-06-17 12:38] LABS: FREE T4 1.12 NG/DL (0.89-1.76)
[2022-06-17 12:41] LABS: ALKALINE PHOSPHATASE 50 U/L (46-116); ALT/SGPT 17 U/L (7.0-40); AST/SGOT 28 U/L (<34); BILIRUBIN,TOTAL 0.5 MG/DL (0.3-1.2); BLOOD UREA NITROGEN 16 MG/DL (9-23); CALCIUM LEVEL 9.3 MG/DL (8.3-10.6); CARBON DIOXIDE LEVEL 19 MMOL/L (20-31); CHLORIDE LEVEL 109 MMOL/L (98-107); CHOLESTEROL LEVEL 184 MG/DL (<200); CHOLESTEROL RISK RATIO 3.75 (<5); CREATININE FOR GFR 0.85 MG/DL (0.55-1.30); GLOMERULAR FILTRATION RATE > 60.0 (>32); GLUCOSE, FASTING 100 MG/DL (74-106); LDL CHOLESTEROL 109.6 MG/DL (<100); NON-HDL-C 135 MG/DL; POTASSIUM SERUM 4.2 MMOL/L (3.5-5.1); SODIUM LEVEL 144 MMOL/L (136-145); TOTAL PROTEIN 6.8 G/DL (5.7-8.2); TRIGLYCERIDES LEVEL 127 MG/DL (<150)
== END ==
LOC: M SFHCCLAY 08:47
PROVIDERS: ATTEND Nurse Practitioner Family
DX: E78.1 Pure hyperglyceridemia (principal); E78.00 Pure hypercholesterolemia, unspecified; I48.91 Unspecified atrial fibrillation

== ENCOUNTER 2022-07-21 19:21 | Inpatient (IN) | payer MEDICARE ==
[~2022-07-21] VITALS: Ht 160 cm; Wt 48.6 kg
[2022-07-21 19:55] LABS: BASO # 0.1 10^3/uL (0.0-0.2); BASO % 0.7 % (0.0-1.0); EOS # 0.1 10^3/uL (0.0-0.5); EOS % 0.9 % (0.0-3.0); HEMATOCRIT 42.2 % (36.0-47.0); HEMOGLOBIN 14.5 g/dl (12.0-15.5); LYMPH # 3.3 10^3/uL (1.5-5.0); LYMPH % 35.5 % (24.0-44.0); MEAN CORPUSCULAR HEMOGLOBIN 32.2 pg (27.0-33.0); MEAN CORPUSCULAR HGB CONC 34.4 g/dl (32.0-36.5); MEAN CORPUSCULAR VOLUME 93.8 fl (80.0-96.0); MONO # 0.9 10^3/uL (0.0-0.8); MONO % 9.4 % (2.0-8.0); NEUTROPHILS # 4.9 10^3/uL (1.5-8.5); NEUTROPHILS % 53.1 % (36.0-66.0); PLATELET COUNT, AUTOMATED 345 10^3/uL (150-450); WHITE BLOOD COUNT 9.2 10^3/uL (4.0-10.0)
[2022-07-21] MEDS: METOPROLOL 5 MG/5 ML VIAL IV PRN ×6 (19:56→20:53)
[2022-07-21 20:07] LABS: PROTHROMBIN TIME 13.4 SECONDS (12.5-14.5)
[2022-07-21 20:08] LABS: PARTIAL THROMBOPLASTIN TIME 30.8 SECONDS (24.8-34.2)
[2022-07-21 20:20] LABS: BILIRUBIN,DIRECT 0.1 MG/DL (<0.4)
[2022-07-21 20:23] LABS: ALBUMIN 4.3 G/DL (3.2-5.2); ALKALINE PHOSPHATASE 40 U/L (46-116); ALT/SGPT 19 U/L (7.0-40); AST/SGOT 50 U/L (<34); BILIRUBIN,TOTAL 0.7 MG/DL (0.3-1.2); BLOOD UREA NITROGEN 22 MG/DL (9-23); CALCIUM LEVEL 9.6 MG/DL (8.3-10.6); CARBON DIOXIDE LEVEL 22 MMOL/L (20-31); CHLORIDE LEVEL 106 MMOL/L (98-107); CK-MB VALUE MASS 2.5 NG/ML (<3.6); CPK CREATINE PHOSPHOKINASE 81 U/L (34-145); GLOMERULAR FILTRATION RATE > 60.0 (>32); GLUCOSE, FASTING 152 MG/DL (74-106); LIPASE 61 U/L (12-53); MB/CK RELATIVE INDEX 3.08 (< OR =4); POTASSIUM SERUM 4.7 MMOL/L (3.5-5.1); SODIUM LEVEL 140 MMOL/L (136-145); TOTAL PROTEIN 7.4 G/DL (5.7-8.2)
[2022-07-21 20:25] LABS: RSV AMPLIFICATION NEGATIVE (NEGATIVE)
[2022-07-21] MEDS ORDERED: METOPROLOL TART 50 MG TAB PO ONE (21:00)
[2022-07-21] MEDS ORDERED: DIGOXIN INJ 0.5 MG/2 ML AMP IV ONE (21:10)
[2022-07-21 21:46] LABS: CK-MB VALUE MASS 2.8 NG/ML (<3.6)
[2022-07-21 21:48] LABS: MB/CK RELATIVE INDEX 5.09 (< OR =4)
[2022-07-21 23:04] LABS: CK-MB VALUE MASS 3.6 NG/ML (<3.6)
[2022-07-21 23:09] LABS: MB/CK RELATIVE INDEX 5.62 (< OR =4)
[2022-07-21] MEDS ORDERED: ACETAMINOPHEN TAB 650MG DOSE (2X325MG) PO PRN (23:35)
[2022-07-22] VITALS (8 sets, daily range): BP systolic 90–128; BP diastolic 53–78
[2022-07-22] MEDS ORDERED: ASPIRIN 81MG CHEW TABLET PO ONE
[2022-07-22] MEDS ORDERED: med rec comment (00:05)
[2022-07-22] MEDS ORDERED: HOME MED LIST COMPLETE! XX SCH (00:05)
[2022-07-22] MEDS ORDERED: FLECAINIDE 50MG TABLET PO ONE (01:00)
[2022-07-22] MEDS ORDERED: APIXABAN 2.5 MG TAB (ELIQUIS) PO ONE (01:00)
[2022-07-22] MEDS: METOPROLOL TART 25 MG TABLET PO SCH ×4 (05:56→23:59)
[2022-07-22 06:39] LABS: MAGNESIUM LEVEL 1.7 MG/DL (1.8-2.4)
[2022-07-22 06:41] LABS: BLOOD UREA NITROGEN 22 MG/DL (9-23); CALCIUM LEVEL 8.9 MG/DL (8.3-10.6); CARBON DIOXIDE LEVEL 24 MMOL/L (20-31); CHLORIDE LEVEL 110 MMOL/L (98-107); CREATININE FOR GFR 0.85 MG/DL (0.55-1.30); GLOMERULAR FILTRATION RATE > 60.0 (>32); GLUCOSE, FASTING 103 MG/DL (74-106); POTASSIUM SERUM 4.1 MMOL/L (3.5-5.1); SODIUM LEVEL 143 MMOL/L (136-145)
[2022-07-22] MEDS ORDERED: MAG SULF 1GM/100ML (MAG RUN) 1 GM in IV 1 EA IV ONE (08:00)
[2022-07-22] MEDS: PANTOPRAZOLE 40MG TAB (PROTONIX) PO SCH (08:20)
[2022-07-22] MEDS: DOCUSATE SODIUM 100MG CAPSULE PO SCH ×2 (08:21→20:43)
[2022-07-22] MEDS: APIXABAN 2.5 MG TAB (ELIQUIS) PO SCH ×2 (08:21→20:43)
[2022-07-22] MEDS: ASPIRIN 81MG CHEW TABLET PO SCH (08:21)
[2022-07-22] MEDS ORDERED: FLECAINIDE 50MG TABLET PO SCH (09:00)
[2022-07-22] MEDS: FENOFIBRATE 145MG TABLET (TRICOR) PO SCH (20:43)
[2022-07-22] MEDS: SIMVASTATIN 10 MG TAB PO SCH (20:43)
[2022-07-23 03:51] VITALS: BP 118/59
[2022-07-23] MEDS: METOPROLOL TART 25 MG TABLET PO SCH ×3 (05:55→18:35)
[2022-07-23 08:00] VITALS: BP 125/60
[2022-07-23] MEDS: ASPIRIN 81MG CHEW TABLET PO SCH (09:04)
[2022-07-23] MEDS: DOCUSATE SODIUM 100MG CAPSULE PO SCH ×2 (09:05→20:56)
[2022-07-23] MEDS: APIXABAN 2.5 MG TAB (ELIQUIS) PO SCH (09:05)
[2022-07-23] MEDS: PANTOPRAZOLE 40MG TAB (PROTONIX) PO SCH (09:05)
[2022-07-23 12:00] VITALS: BP 115/63
[2022-07-23 14:14] LABS: HEMATOCRIT 40.3 % (36.0-47.0); HEMOGLOBIN 13.6 g/dl (12.0-15.5); MEAN CORPUSCULAR HEMOGLOBIN 31.8 pg (27.0-33.0); MEAN CORPUSCULAR HGB CONC 33.7 g/dl (32.0-36.5); MEAN CORPUSCULAR VOLUME 94.2 fl (80.0-96.0); PLATELET COUNT, AUTOMATED 332 10^3/uL (150-450); RED BLOOD COUNT 4.28 10^6/uL (4.00-5.40); WHITE BLOOD COUNT 8.3 10^3/uL (4.0-10.0)
[2022-07-23 16:00] VITALS: BP 111/74
[2022-07-23 19:31] VITALS: BP 128/58
[2022-07-23] MEDS: SIMVASTATIN 10 MG TAB PO SCH (20:56)
[2022-07-23] MEDS: FENOFIBRATE 145MG TABLET (TRICOR) PO SCH (20:56)
[2022-07-23] MEDS ORDERED: HEPARIN SOD (PORCINE) 5000UNITS/ML 1ML VIAL/SYRINGE IV PRN (21:00)
[2022-07-23] MEDS ORDERED: HEPARIN DRIP 25,000 UNITS in IV 1 EA IV SCH (21:00)
[2022-07-23 23:39] VITALS: BP 118/60
[2022-07-24] VITALS: BP 118/60
[2022-07-24 04:00] VITALS: BP 106/57
[2022-07-24 07:59] VITALS: BP 131/60
[2022-07-24] MEDS: DOCUSATE SODIUM 100MG CAPSULE PO SCH (08:41)
[2022-07-24 08:42] VITALS: BP 131/60
[2022-07-24] MEDS: PANTOPRAZOLE 40MG TAB (PROTONIX) PO SCH (08:42)
[2022-07-24] MEDS: ASPIRIN 81MG CHEW TABLET PO SCH (08:42)
[2022-07-24] MEDS ORDERED: APIXABAN 2.5 MG TAB (ELIQUIS) PO SCH (09:00)
[2022-07-24] MEDS ORDERED: METOPROLOL TART 50 MG TAB PO SCH (09:00)
[2022-07-24] MEDS ORDERED: LOPR1TAB6 PO (11:08)
[2022-07-24 12:10] VITALS: BP 123/84
== END 2022-07-24 15:25 | disposition home or self-care (01) | DRG 310 ==
LOC: M ED 19:21 → M ED INP 22:47 → M PCU 07-22 00:23
PROVIDERS: ADMIT Internal Medicine; ATTEND Internal Medicine
DX: I48.91 Unspecified atrial fibrillation (principal); K21.9 Gastro-esophageal reflux disease without esophagitis; E78.5 Hyperlipidemia, unspecified; Z79.899 Other long term (current) drug therapy; Z95.0 Presence of cardiac pacemaker; I10 Essential (primary) hypertension; I25.2 Old myocardial infarction

== ENCOUNTER → 2023-04-21 | Outpatient (REF) | payer MEDICARE ==
[~2023-04-21] MED LIST changes: +LOPR1TAB6 PO; +med rec comment
[2023-04-22 04:01] LABS: BLOOD UREA NITROGEN 22 MG/DL (9-23); CALCIUM LEVEL 9.9 MG/DL (8.3-10.6); CARBON DIOXIDE LEVEL 27 MMOL/L (20-31); CHLORIDE LEVEL 107 MMOL/L (98-107); CHOLESTEROL LEVEL 175 MG/DL (<200); CHOLESTEROL RISK RATIO 3.82 (<5); CREATININE FOR GFR 0.91 MG/DL (0.55-1.30); FREE T4 1.06 NG/DL (0.89-1.76); GLOMERULAR FILTRATION RATE > 60.0 (>32); GLUCOSE, FASTING 107 MG/DL (74-106); HDL CHOLESTEROL 45.7 MG/DL (>40); LDL CHOLESTEROL 105.5 MG/DL (<100); MAGNESIUM LEVEL 1.7 MG/DL (1.8-2.4); NON-HDL-C 129.3 MG/DL; POTASSIUM SERUM 4.6 MMOL/L (3.5-5.1); SODIUM LEVEL 143 MMOL/L (136-145); THYROID STIMULATING HORMONE 3.718 uIU/ML (0.55-4.78); TOTAL 25(OH) VITAMIN D 54.3 NG/ML (20.0-100.0); TRIGLYCERIDES LEVEL 119 MG/DL (<150)
== END ==
LOC: M SFHCCLAY 08:53
PROVIDERS: ATTEND Nurse Practitioner Family
DX: I48.91 Unspecified atrial fibrillation (principal); E55.9 Vitamin D deficiency, unspecified; E78.5 Hyperlipidemia, unspecified; K21.9 Gastro-esophageal reflux disease without esophagitis; M81.0 Age-related osteoporosis without current pathological fracture; Z95.0 Presence of cardiac pacemaker

== ENCOUNTER → 2023-10-20 | Outpatient (REF) | payer MEDICARE ==
[2023-10-20 13:07] LABS: ALKALINE PHOSPHATASE 43 U/L (46-116); ALT/SGPT 16 U/L (7.0-40); AST/SGOT 17 U/L (<34); BILIRUBIN,TOTAL 0.9 MG/DL (0.3-1.2); BLOOD UREA NITROGEN 16 MG/DL (9-23); CALCIUM LEVEL 9.5 MG/DL (8.3-10.6); CARBON DIOXIDE LEVEL 27 MMOL/L (20-31); CHLORIDE LEVEL 107 MMOL/L (98-107); CHOLESTEROL LEVEL 172 MG/DL (<200); CHOLESTEROL RISK RATIO 3.91 (<5); CREATININE FOR GFR 0.93 MG/DL (0.55-1.30); GLOMERULAR FILTRATION RATE > 60.0 (>32); GLUCOSE, FASTING 121 MG/DL (74-106); HDL CHOLESTEROL 43.9 MG/DL (>40); LDL CHOLESTEROL 99.5 MG/DL (<100); NON-HDL-C 128.1 MG/DL; POTASSIUM SERUM 3.9 MMOL/L (3.5-5.1); SODIUM LEVEL 140 MMOL/L (136-145); TRIGLYCERIDES LEVEL 143 MG/DL (<150)
== END ==
LOC: M SFHCCLAY 08:49
PROVIDERS: ATTEND Nurse Practitioner Family
DX: I48.91 Unspecified atrial fibrillation (principal); E78.5 Hyperlipidemia, unspecified

== ENCOUNTER → 2024-04-16 | Outpatient (REF) | payer MEDICARE ==
[2024-04-16 11:57] LABS: BILIRUBIN,TOTAL 1.4 MG/DL (0.3-1.2); CALCIUM LEVEL 10.2 MG/DL (8.3-10.6); CHOLESTEROL RISK RATIO 4.68 (<5); CREATININE FOR GFR 0.97 MG/DL (0.55-1.30); GLOMERULAR FILTRATION RATE 57.7 (>32); HDL CHOLESTEROL 38.6 MG/DL (>40); LDL CHOLESTEROL 109.6 MG/DL (<100); NON-HDL-C 142.4 MG/DL; POTASSIUM SERUM 4.1 MMOL/L (3.5-5.1); TOTAL PROTEIN 6.9 G/DL (5.7-8.2)
== END ==
LOC: M SFHCCLAY 08:40
PROVIDERS: ATTEND Nurse Practitioner Family
DX: I48.91 Unspecified atrial fibrillation (principal); E78.5 Hyperlipidemia, unspecified; K21.9 Gastro-esophageal reflux disease without esophagitis; E55.9 Vitamin D deficiency, unspecified; M81.0 Age-related osteoporosis without current pathological fracture; Z95.0 Presence of cardiac pacemaker

== ENCOUNTER 2024-06-08 07:58 | Inpatient (IN) | payer MEDICARE ==
[~2024-06-08] VITALS: Ht 160 cm; Wt 47.7 kg
[2024-06-08] MEDS: METOPROLOL TART 50 MG TAB PO ONE (09:02)
[2024-06-08] MEDS: APIXABAN 2.5 MG TAB (ELIQUIS) PO ONE (09:02)
[2024-06-08 09:07] LABS: BASO % 0.3 % (0.0-1.0); EOS # 0.1 10^3/uL (0.0-0.5); EOS % 0.5 % (0.0-3.0); HEMOGLOBIN 12.4 g/dl (12.0-15.5); LYMPH # 1.2 10^3/uL (1.5-5.0); LYMPH % 9.8 % (24.0-44.0); MEAN CORPUSCULAR HEMOGLOBIN 32.6 pg (27.0-33.0); MEAN CORPUSCULAR HGB CONC 34.4 g/dl (32.0-36.5); MEAN CORPUSCULAR VOLUME 94.7 fl (80.0-96.0); MONO % 8.6 % (2.0-8.0); NEUTROPHILS # 9.7 10^3/uL (1.5-8.5); NEUTROPHILS % 80.4 % (36.0-66.0); PLATELET COUNT, AUTOMATED 291 10^3/uL (150-450); WHITE BLOOD COUNT 12.1 10^3/uL (4.0-10.0)
[2024-06-08 09:23] LABS: LIPASE 31 U/L (12-53)
[2024-06-08 09:33] LABS: ALBUMIN 3.5 G/DL (3.2-5.2); ALKALINE PHOSPHATASE 43 U/L (35-104); ALT/SGPT 19 U/L (7.0-40); AST/SGOT 19 U/L (<34); BILIRUBIN,DIRECT 0.6 MG/DL (<0.4); BILIRUBIN,TOTAL 1.9 MG/DL (0.3-1.2); BLOOD UREA NITROGEN 18 MG/DL (9-23); CALCIUM LEVEL 9.1 MG/DL (8.3-10.6); CARBON DIOXIDE LEVEL 22 MMOL/L (20-31); CHLORIDE LEVEL 109 MMOL/L (98-107); CREATININE FOR GFR 0.78 MG/DL (0.55-1.30); GLOMERULAR FILTRATION RATE > 60.0 (>32); GLUCOSE, FASTING 156 MG/DL (74-106); POTASSIUM SERUM 3.3 MMOL/L (3.5-5.1); SODIUM LEVEL 143 MMOL/L (136-145)
[2024-06-08] MEDS: FUROSEMIDE 40MG/4ML VIAL IV ONE (09:46)
[2024-06-08 10:10] LABS: INR 1.17; PARTIAL THROMBOPLASTIN TIME 31.8 SECONDS (24.8-34.2); PROTHROMBIN TIME 15.2 SECONDS (12.5-14.5)
[2024-06-08] MEDS ORDERED: CALCIUM CARBONATE 500 MG CHEW U/D PO PRN (13:00)
[2024-06-08 13:27] VITALS: BP 135/65; TEMP 98; O2SAT 95
[2024-06-08] MEDS ORDERED: THERTAB19 PO (16:05)
[2024-06-08] MEDS ORDERED: HOME MED LIST COMPLETE! XX SCH (16:10)
[2024-06-08 16:30] VITALS: BP 130/60; TEMP 98.1; O2SAT 95
[2024-06-08] MEDS: SUCRALFATE SUSP 1GM/10ML UD PO SCH (17:32)
[2024-06-08] MEDS: FUROSEMIDE 40MG/4ML VIAL IV SCH (17:32)
[2024-06-08 19:01] LABS: CK-MB VALUE MASS < 1.0 NG/ML (<3.6)
[2024-06-08 19:02] LABS: BLOOD UREA NITROGEN 16 MG/DL (9-23); CALCIUM LEVEL 9.5 MG/DL (8.3-10.6); CARBON DIOXIDE LEVEL 26 MMOL/L (20-31); CHLORIDE LEVEL 106 MMOL/L (98-107); CREATININE FOR GFR 0.93 MG/DL (0.55-1.30); GLOMERULAR FILTRATION RATE > 60.0 (>32); GLUCOSE, FASTING 150 MG/DL (74-106); MAGNESIUM LEVEL 1.7 MG/DL (1.8-2.4); POTASSIUM SERUM 3.5 MMOL/L (3.5-5.1); SODIUM LEVEL 143 MMOL/L (136-145)
[2024-06-08 19:03] LABS: CPK CREATINE PHOSPHOKINASE 39 U/L (34-145); MB/CK RELATIVE INDEX 2.56 (< OR =4)
[2024-06-08 19:21] VITALS: BP 104/51; TEMP 97.8; O2SAT 93
[2024-06-08 20:07] VITALS: BP 104/51
[2024-06-08] MEDS: METOPROLOL TART 50 MG TAB PO SCH (20:07)
[2024-06-08] MEDS: APIXABAN 2.5 MG TAB (ELIQUIS) PO SCH (20:12)
[2024-06-08] MEDS: OMEGA-3 1000MG CAPSULE PO SCH (20:12)
[2024-06-08] MEDS: FENOFIBRATE 145MG TABLET (TRICOR) PO SCH (20:12)
[2024-06-08] MEDS: SIMVASTATIN 10 MG TAB PO SCH (20:12)
[2024-06-08] MEDS: FLECAINIDE 50MG TABLET PO SCH (20:12)
[2024-06-08] MEDS: ASPIRIN 325 MG TAB PO ONE (21:15)
[2024-06-08] MEDS: MAG SULF 1GM/100ML (MAG RUN) 1 GM in IV 1 EA IV SCH (22:07)
[2024-06-08 23:00] VITALS: BP 100/52; TEMP 97.5; O2SAT 93
[2024-06-09] VITALS (10 sets, daily range): BP systolic 99–122; BP diastolic 53–59; TEMP 97–97.9; O2SAT 91–98
[2024-06-09 00:41] LABS: CK-MB VALUE MASS < 1.0 NG/ML (<3.6)
[2024-06-09 01:11] LABS: CPK CREATINE PHOSPHOKINASE 39 U/L (34-145); MB/CK RELATIVE INDEX 2.56 (< OR =4)
[2024-06-09 06:22] LABS: BASO # 0.1 10^3/uL (0.0-0.2); BASO % 0.6 % (0.0-1.0); EOS # 0.2 10^3/uL (0.0-0.5); HEMATOCRIT 38.3 % (36.0-47.0); HEMOGLOBIN 13.2 g/dl (12.0-15.5); LYMPH # 2.5 10^3/uL (1.5-5.0); LYMPH % 30.8 % (24.0-44.0); MEAN CORPUSCULAR HEMOGLOBIN 32.4 pg (27.0-33.0); MEAN CORPUSCULAR HGB CONC 34.5 g/dl (32.0-36.5); MEAN CORPUSCULAR VOLUME 93.9 fl (80.0-96.0); MONO % 12.5 % (2.0-8.0); NEUTROPHILS # 4.3 10^3/uL (1.5-8.5); NEUTROPHILS % 53.9 % (36.0-66.0); PLATELET COUNT, AUTOMATED 318 10^3/uL (150-450); RED BLOOD COUNT 4.08 10^6/uL (4.00-5.40)
[2024-06-09 06:51] LABS: ALBUMIN 3.4 G/DL (3.2-5.2); CALCIUM LEVEL 8.8 MG/DL (8.3-10.6); CREATININE FOR GFR 0.96 MG/DL (0.55-1.30); GLOMERULAR FILTRATION RATE 58.4 (>32); MAGNESIUM LEVEL 2.5 MG/DL (1.8-2.4); PHOSPHORUS LEVEL 3.2 MG/DL (2.4-5.1); POTASSIUM SERUM 3.2 MMOL/L (3.5-5.1)
[2024-06-09] MEDS: PANTOPRAZOLE 40MG TAB (PROTONIX) PO SCH (10:16)
[2024-06-09] MEDS: ATORVASTATIN 20 MG TAB PO SCH (10:17)
[2024-06-09] MEDS: POTASSIUM CHLORIDE 10MEQ SR TABLET PO ONE (11:41)
[2024-06-09 12:24] LABS: CPK CREATINE PHOSPHOKINASE 39 U/L (34-145)
[2024-06-09 12:43] LABS: HEPATITIS B SURFACE ANTIGEN NEGATIVE (NEGATIVE)
[2024-06-09 13:05] LABS: HEPATITIS B CORE ANTIBODY IGM NEGATIVE (NEGATIVE); HEPATITIS C VIRUS ABY INDEX < 0.02 INDEX (<0.8)
[2024-06-09 13:09] LABS: BLOOD UREA NITROGEN 20 MG/DL (9-23); CALCIUM LEVEL 10.3 MG/DL (8.3-10.6); CARBON DIOXIDE LEVEL 32 MMOL/L (20-31); CHLORIDE LEVEL 103 MMOL/L (98-107); CK-MB VALUE MASS < 1.0 NG/ML (<3.6); CREATININE FOR GFR 0.98 MG/DL (0.55-1.30); GLUCOSE, FASTING 153 MG/DL (74-106); MB/CK RELATIVE INDEX 2.56 (< OR =4); POTASSIUM SERUM 3.2 MMOL/L (3.5-5.1); SODIUM LEVEL 143 MMOL/L (136-145)
[2024-06-09] MEDS: ASPIRIN 81MG ENTERIC TABLET PO SCH (16:06)
[2024-06-09] MEDS: RANOLAZINE 500MG ER TAB PO SCH (16:07)
[2024-06-10] VITALS (13 sets, daily range): BP systolic 97–130; BP diastolic 49–68; TEMP 97.3–98.2; O2SAT 83–98
[2024-06-10 07:43] LABS: HEMATOCRIT 37.9 % (36.0-47.0); HEMOGLOBIN 12.8 g/dl (12.0-15.5); MEAN CORPUSCULAR HEMOGLOBIN 32.2 pg (27.0-33.0); MEAN CORPUSCULAR HGB CONC 33.8 g/dl (32.0-36.5); MEAN CORPUSCULAR VOLUME 95.2 fl (80.0-96.0); PLATELET COUNT, AUTOMATED 332 10^3/uL (150-450); RED BLOOD COUNT 3.98 10^6/uL (4.00-5.40); WHITE BLOOD COUNT 8.1 10^3/uL (4.0-10.0)
[2024-06-10 08:21] LABS: BLOOD UREA NITROGEN 26 MG/DL (9-23); CALCIUM LEVEL 9.7 MG/DL (8.3-10.6); CARBON DIOXIDE LEVEL 29 MMOL/L (20-31); CHLORIDE LEVEL 108 MMOL/L (98-107); CREATININE FOR GFR 0.85 MG/DL (0.55-1.30); GLOMERULAR FILTRATION RATE > 60.0 (>32); GLUCOSE, FASTING 106 MG/DL (74-106); POTASSIUM SERUM 4.6 MMOL/L (3.5-5.1); SODIUM LEVEL 143 MMOL/L (136-145)
[2024-06-10] MEDS: FUROSEMIDE 40 MG TAB PO SCH (09:19)
[2024-06-10 12:40] LABS: CK-MB VALUE MASS 1.2 NG/ML (<3.6)
[2024-06-10 12:41] LABS: CPK CREATINE PHOSPHOKINASE 31 U/L (34-145); MB/CK RELATIVE INDEX 3.87 (< OR =4)
[2024-06-10] MEDS ORDERED: LASI20TA3 PO (16:26)
[2024-06-10] MEDS ORDERED: TALK1KIT MC (16:27)
[2024-06-10] MEDS ORDERED: METO25TA PO (16:31)
[2024-06-11] MEDS ORDERED: FUROSEMIDE 20 MG TAB PO SCH (09:00)
[2024-06-11 10:17] LABS: ANA SCREEN, IFA NEGATIVE (NEGATIVE)
== END 2024-06-10 17:55 | disposition home health service (06) | DRG 280 ==
LOC: M ED 07:58 → EDBD 07:58 → M ED INP 11:45 → M PCU 13:12
PROVIDERS: ADMIT General Practice; ATTEND General Practice
PROC: B246ZZZ Ultrasonography of Right and Left Heart (ICD-10-PCS; principal; 2024-06-08)
DX: I13.0 Hypertensive heart and chronic kidney disease with heart failure and stage 1 through stage 4 chronic kidney disease, or unspecified chronic kidney disease (principal); I21.4 Non-ST elevation (NSTEMI) myocardial infarction; J96.01 Acute respiratory failure with hypoxia; I50.33 Acute on chronic diastolic (congestive) heart failure; G93.41 Metabolic encephalopathy; J15.9 Unspecified bacterial pneumonia; I48.21 Permanent atrial fibrillation; Z68.1 Body mass index [BMI] 19.9 or less, adult; I24.89 Other forms of acute ischemic heart disease; I49.5 Sick sinus syndrome; I25.10 Atherosclerotic heart disease of native coronary artery without angina pectoris; K21.9 Gastro-esophageal reflux disease without esophagitis; E78.5 Hyperlipidemia, unspecified; E80.4 Gilbert syndrome; K29.70 Gastritis, unspecified, without bleeding; M81.0 Age-related osteoporosis without current pathological fracture; D64.9 Anemia, unspecified; E55.9 Vitamin D deficiency, unspecified; E87.6 Hypokalemia; N18.2 Chronic kidney disease, stage 2 (mild); E80.6 Other disorders of bilirubin metabolism; Z79.01 Long term (current) use of anticoagulants; Z79.899 Other long term (current) drug therapy; Z95.0 Presence of cardiac pacemaker; Z86.73 Personal history of transient ischemic attack (TIA), and cerebral infarction without residual deficits; Z90.49 Acquired absence of other specified parts of digestive tract; Z98.42 Cataract extraction status, left eye

== ENCOUNTER → 2024-07-01 | Outpatient (REF) | payer MEDICARE ==
[~2024-07-01] MED LIST changes: +LASI20TA3 PO; +METO25TA PO; +TALK1KIT MC; +THERTAB19 PO
== END ==
LOC: M SFHCCLAY 15:39
PROVIDERS: ATTEND Physician Assistant
DX: I50.33 Acute on chronic diastolic (congestive) heart failure (principal); K29.00 Acute gastritis without bleeding; J96.01 Acute respiratory failure with hypoxia; E80.6 Other disorders of bilirubin metabolism; E87.6 Hypokalemia; I48.21 Permanent atrial fibrillation; R94.31 Abnormal electrocardiogram [ECG] [EKG]

== ENCOUNTER → 2024-10-21 | Outpatient (REF) | payer MEDICARE ==
[2024-10-21 12:24] LABS: BASO # 0.1 10^3/uL (0.0-0.2); BASO % 0.7 % (0.0-1.0); EOS # 0.1 10^3/uL (0.0-0.5); EOS % 1.3 % (0.0-3.0); HEMATOCRIT 41.5 % (36.0-47.0); HEMOGLOBIN 13.6 g/dl (12.0-15.5); LYMPH # 3.1 10^3/uL (1.5-5.0); LYMPH % 37.9 % (24.0-44.0); MEAN CORPUSCULAR HGB CONC 32.8 g/dl (32.0-36.5); MEAN CORPUSCULAR VOLUME 97.6 fl (80.0-96.0); MONO # 0.8 10^3/uL (0.0-0.8); NEUTROPHILS # 4.1 10^3/uL (1.5-8.5); NEUTROPHILS % 49.9 % (36.0-66.0); PLATELET COUNT, AUTOMATED 266 10^3/uL (150-450); RED BLOOD COUNT 4.25 10^6/uL (4.00-5.40); WHITE BLOOD COUNT 8.2 10^3/uL (4.0-10.0)
[2024-10-21 12:35] LABS: ALBUMIN 4.4 G/DL (3.2-5.2); CALCIUM LEVEL 10.1 MG/DL (8.3-10.6); CREATININE FOR GFR 0.95 MG/DL (0.55-1.30); GLOMERULAR FILTRATION RATE 57.6 (>32); POTASSIUM SERUM 3.9 MMOL/L (3.5-5.1); TOTAL PROTEIN 7.4 G/DL (5.7-8.2)
== END ==
LOC: M SFHCCLAY 08:35
PROVIDERS: ATTEND Physician Assistant
DX: I50.33 Acute on chronic diastolic (congestive) heart failure (principal); K29.00 Acute gastritis without bleeding; J96.01 Acute respiratory failure with hypoxia; E80.6 Other disorders of bilirubin metabolism; E87.6 Hypokalemia; I48.21 Permanent atrial fibrillation; R94.31 Abnormal electrocardiogram [ECG] [EKG]

== ENCOUNTER → 2025-04-28 | Outpatient (REF) | payer MEDICARE ==
[2025-04-28 18:45] LABS: ALT/SGPT 13.0 U/L (7.0-40); AST/SGOT 18.0 U/L (<34); CALCIUM LEVEL 9.9 MG/DL (8.3-10.6); CARBON DIOXIDE LEVEL 27.0 MMOL/L (20-31); CHLORIDE LEVEL 106.0 MMOL/L (98-107); CHOLESTEROL LEVEL 158.0 MG/DL (<200); CHOLESTEROL RISK RATIO 3.61 (<5); CREATININE FOR GFR 1.03 MG/DL (0.55-1.30); GLOMERULAR FILTRATION RATE 52.0 (>32); LDL CHOLESTEROL 86.1 MG/DL (<100); NON-HDL-C 114.3 MG/DL; POTASSIUM SERUM 4.7 MMOL/L (3.5-5.1); SODIUM LEVEL 143.0 MMOL/L (136-145); TRIGLYCERIDES LEVEL 141.0 MG/DL (<150)
[2025-04-28 18:47] LABS: PLATELET COUNT, AUTOMATED 256 10^3/uL (150-450)
== END ==
LOC: M SFHCCLAY 14:14
PROVIDERS: ATTEND Nurse Practitioner Family
DX: I48.21 Permanent atrial fibrillation (principal); K21.9 Gastro-esophageal reflux disease without esophagitis; Z79.899 Other long term (current) drug therapy